=== PATIENT | male | born 1960 | race African-American/Black ===

== ENCOUNTER 2017-11-04 11:26 | Inpatient (IN) | payer OTHER ==
[~2017-11-04] VITALS: Ht 180.3 cm; Wt 170.7 kg
[~2017-11-04 11:26] MED LIST: ASPI-1152 PO; CARI350T PO; ENOX100D SQ; FINA5TAB3 PO; LISI-603 PO; LORA2TAB95 PO; METO50TA16 PO; MORP30CP13 PO; OXYC10TA49 PO; PANT40TA2 PO; RXENO XX; SIMV10TA6 PO; TAMS-12 PO; WARF7.5T49 PO; ZOLP10TA2 PO
--- NOTE | 2017-11-04 11:30 | NUR ---
PATIENT TO ED DT CHEST PAIN, ACHING, 8/10, RADIATING TO LEFT SHOULDER, BACK AND LEFT JAW STARTED 30MINS SQL MANAGER. PATIENT IS AWAKE AND ALERT. IN NO DISTRESS. SKIN IS WARM TO TOUCH AND NON DIAPHORETIC. PATIENT IS AFEBRILE. NO SOB. VSS.
--- NOTE | 2017-11-04 11:31 | NUR ---
EKG IN PROGRESS
--- NOTE | 2017-11-04 11:35 | NUR ---
MD FIELDS AT BEDSIDE
[2017-11-04] MEDS ORDERED: ASPIRIN 325 MG TABLET ONE (11:42)
[2017-11-04 11:53] LABS: BASOPHILS # (AUTO) 0.3 /CMM (0.0-0.2); BASOPHILS % (AUTO) 2.6 % (0.0-2.0); EOSINOPHILS % (AUTO) 2.1 % (0.0-6.0); HEMATOCRIT 33 % (39-51); HEMOGLOBIN 11.2 g/dL (13.5-17.5); LYMPHOCYTES # (AUTO) 1.6 /CMM (0.8-4.8); LYMPHOCYTES % (AUTO) 12.9 % (20.0-44.0); MEAN CORPUSCULAR HGB CONC 34 g/dl (31.0-36.0); MEAN CORPUSCULAR VOLUME 84 fL (80-96); MONOCYTES # (AUTO) 0.6 /CMM (0.1-1.30); MONOCYTES % (AUTO) 4.9 % (2.0-12.0); NEUTROPHILS # (AUTO) 9.6 /CMM (1.8-8.9); NEUTROPHILS % (AUTO) 77.5 % (43.0-81.0); PLATELET COUNT (AUTO) 285 /CMM (150-450); RDW COEFFICIENT OF VARIATION 19.2 (11.5-15.0); RED BLOOD CELL COUNT(AUTO) 3.98 MIL/uL (4.5-6.0); WHITE BLOOD COUNT (AUTO) 12.4 K/uL (4.3-11.0)
[2017-11-04] MEDS ORDERED: METO-356 PO (12:00)
[2017-11-04] MEDS ORDERED: SIMV40TA5 PO (12:00)
[2017-11-04] MEDS ORDERED: WARF10TA45 PO (12:00)
[2017-11-04] MEDS ORDERED: HYDR-548 PO (12:00)
[2017-11-04] MEDS ORDERED: ASPIRIN 325 MG TABLET PO ONE (12:00)
[2017-11-04 12:01] LABS: CALCIUM, SERUM 8.8 mg/dL (8.5-10.1); CARBON DIOXIDE 22 mmol/L (21-32); CHLORIDE 102 mmol/L (98-107); CREATININE 1.2 mg/dL (0.6-1.3); GLUCOSE 105 mg/dL (74-106); POTASSIUM 4.4 mmol/L (3.5-5.1); SODIUM SERUM 135 mmol/L (136-145); UREA NITROGEN, BLOOD 13 mg/dL (7-18)
--- NOTE | 2017-11-04 12:02 | NUR ---
FAN MAIL EDITOR AT BEDSIDE
[2017-11-04 12:11] LABS: TROPONIN I < 0.017 ng/mL (0.00-0.056)
[2017-11-04 12:28] LABS: INR 5.7 (0.85-1.15)
--- NOTE | 2017-11-04 12:44 | NUR ---
GAVE REPORT TO TELE ROOM 307 CLARA HO SLIPCOVER CUTTER ADMITTING. ADMITITNG DX CP TRANSFER VIA ACLS PROTOCOL
[2017-11-04] MEDS ORDERED: IV NS 0.9% 1,000 ML IV PRN (13:09)
[2017-11-04 13:15] VITALS: BP 133/67
--- NOTE | 2017-11-04 13:15 | NUR ---
PATIENT ARRIVED TO FLOOR AND PLACED IN ROOM 307-1
[2017-11-04] MEDS ORDERED: ZOLPIDEM TARTRATE 5 MG TABLET PO PRN (13:30)
[2017-11-04] MEDS ORDERED: ACETAMINOPHEN 325 MG TABLET PO PRN (13:30)
[2017-11-04] MEDS ORDERED: MAG HYDROX/AL HYDROX/SIMETH 30 ML UDC PO PRN (13:30)
[2017-11-04] MEDS ORDERED: MAGNESIUM HYDROXIDE 30 ML UDC PO PRN (13:30)
[2017-11-04] MEDS ORDERED: Z GUARD REMEDY 2 OZ OINT TP PRN (13:30)
[2017-11-04] MEDS ORDERED: METOCLOPRAMIDE HCL 15 MG in IV NS 0.9% 50 ML IV PRN (14:00)
--- NOTE | 2017-11-04 14:00 | NUR ---
RN ADMITTING NOTES PATIENT ARRIVED TO UNIT, PLACED IN ROOM 307-1. CHANGED TO A GOWN, SKIN ASSESSMENT COMPLETED, NO OPEN WOUNDS. BED IN LOW POSITION, LOCKED AND TWO SIDE RAILS ARE UP FOR SAFETY. CALL LIGHT WITHIN REACH FOR SAFETY. NO IV ACCESS, MD AWARE. WILL CONTINUE TO ASSESS AND MONITOR PATIENT.
[2017-11-04] MEDS ORDERED: METOCLOPRAMIDE HCL 10 MG/2 ML VIAL IV PRN (14:30)
[2017-11-04] MEDS ORDERED: LEVOFLOXACIN 750 MG /D5W 150ML 750 MG in PREMIX 1 EA IV SCH (15:00)
--- NOTE | 2017-11-04 15:10 | NUR ---
DR FRANKO EDDY WILL START A MIDLINE TOMORROW MORNING
--- NOTE | 2017-11-04 15:17 | NUR ---
ERROL ELIZABETH NOTIFIED OF NO IV ACCESS. ALL IV MEDS PLACED IN HOLD. PENDING MIDLINE. I REQUESTED IM PAIN MEDS, PENDING REPLY.
[2017-11-04 16:00] VITALS: BP 124/56
[2017-11-04] MEDS: MORPHINE SULFATE INJ 4 MG/ML DISP.SYRIN IM PRN ×2 (16:32→23:51)
[2017-11-04] MEDS: METOPROLOL TARTRATE 50 MG TABLET PO SCH ×2 (17:21→23:51)
[2017-11-04] MEDS: TAMSULOSIN 0.4 MG CAP.SR.24H PO SCH (17:21)
--- NOTE | 2017-11-04 17:23 | NUR ---
RADIOLOGIST AT BEDSIDE TO ASSESS PATIENT FOR CT SCAN. PER RADIOLOGIST, PATIENT IS UNABLE TO FIT. PLUS IODINE ALLERGY
--- NOTE | 2017-11-04 18:38 | NUR ---
RN CLOSING NOTES PATIENT IS IN BED. ALERT AND ORIENTED TO NAME, PLACE AND TIME. NO SIGNS AND SYMPTOMS OF DISTRESS. NO PAIN. RESPIRATION REGULAR AND UNLABORED. NO IV ACCESS, MIDLINE IN AM BY DR FRANCINE EDDY. PATIENT KEPT DRY, CLEAN AND SAFE. ALL NURSING CARE ANTICIPATED AND ATTENDED FOR. BED IS IN LOW POSITION, LOCKED AND TWO SIDE RAILS ARE UP. CALL LIGHT WITHIN REACH FOR SAFETY. WILL ENDORSE TO RISK MGR NURSE TO [facility].
--- NOTE | 2017-11-04 18:52 | NUR ---
PER PATIENT, MORPHINE 4MG IM DIDN'T HELP MUCH AND HE IS STILL IN PAIN, CLARA NOTIFIED, PENDING REPLY.
[2017-11-04] MEDS ORDERED: HYDROMORPHONE 1 MG/1 ML DISP.SYRIN IM PRN (19:30)
--- NOTE | 2017-11-04 19:30 | NUR ---
CHERI RN OPENING NOTES: RECEIVED PT AND IS ON ROOM AIR AND TOLERATING WELL. PT HAS NO IV ACCESS AT THIS TIME PT IS HARDSTICK. PT IS TO GET MIDLINE TOMORROW AM. PT VERBALIZING THAT MORPHINE 4MG IM DID NOT WORK WHEN IT WAS GIVEN. CALL LIGHT WITHIN PT'S REACH. BED KEPT IN LOW, LOCKED POSITION, AND SIDE RAILS X 2UP. WILL CONTINUE TO MONITOR PT.
[2017-11-04 20:00] VITALS: BP 123/69
[2017-11-04] MEDS: HYDROMORPHONE INJ 2 MG/ML DISP.SYRIN IM PRN (20:48)
--- NOTE | 2017-11-04 20:53 | NUR ---
EXECUTIVE VICE PRESIDENT OF SALES NOTES: PT WAS COMPLAINING OF L SHOULDER AND L ARM PAIN 8/10. PT WAS ADMINISTERED DILAUDID 1MG IM ON R DELTOID. WILL CONTINUE TO MNITOR PT.
[2017-11-04] MEDS ORDERED: HYDROMORPHONE INJ 0.5 MG/0.5 ML SYRINGE IM PRN (21:00)
[2017-11-04] MEDS: SIMVASTATIN 40 MG TABLET PO SCH (21:07)
--- NOTE | 2017-11-04 23:26 | NUR ---
DIRECTOR OF CONSERVATION NOTES: HOSPICE RN UNSUCCESSFUL IN GETTING ENOUGH BLOOD PT IS HARD STICK. PT IS TO GET MIDLINE INSERTED TOMORROW BY DR. EDDY.
--- NOTE | 2017-11-04 23:39 | NUR ---
SODA COLUMN OPERATOR NOTES: DR. CHANDNI Wen NOTIFIED ABOUT THIRD TROPONIN NOT BEING ABLE TO BE DRAWN. MD AWARE AND SAID TO HAVE IT DRAWN IN AM WITH MORNING LABS.
[2017-11-04 23:47] VITALS: BP 121/54
[2017-11-05] VITALS (7 sets, daily range): BP systolic 110–123; BP diastolic 58–78
[2017-11-05] MEDS: HYDROMORPHONE INJ 2 MG/ML DISP.SYRIN IM PRN ×3 (03:48→20:02)
[2017-11-05] MEDS: METOPROLOL TARTRATE 50 MG TABLET PO SCH ×4 (05:19→23:59)
--- NOTE | 2017-11-05 05:41 | NUR ---
DATABASE TECHNICIAN NOTES: PT REMOVED TELE BOX FROM HIMSELF. HE SAID IT IS IRRITATING HIM AND HE HAS NOT BEEN ABLE TO SLEEP EVERYTIME IT HAS TO BE FIXED. EXPLAINED TO PT THE BENEFITS OF HAVING THE OVERHEAD CLEANER ON WE ARE ABLE TO SEE WHAT IS GOING ON WITH HIM. PT SAID HE WOULD LIKE IT TO BE APPLIED A LITTLE LATER AND THAT HE WANTS TO BE ABLE TO SLEEP.
--- NOTE | 2017-11-05 06:19 | NUR ---
LEAD GENERATOR CLOSING NOTES: ALL NEEDS WERE ATTENDED AND ANTICIPATED FOR. PT ON ROOM AIR AND TOLERATING WELL. PT IS A/OX4. PT'S TELE BOX READING SHOWED SR WITH BBBS. HOWEVER, PT DOES NOT HAVE TELE BOX ON RIGHT NOW HE DOES NOT WANT IT ON SINCE IT IS IRRITATING HIM AND HAS NOT BEEN ABLE TO SLEEP. TELE BOX ON TABLE. PT STILL HAS NO IV NOTED AT THIS TIME. MIDLINE TO BE PLACED BY DR. EDDY THIS AM. CALL LIGHT WITHIN PT'S REACH. BED KEPT IN LOW, LOCKED POSITION, AND SIDE RAILS X 2UP. WILL ENDORSE TO AM NURSE FOR IMAN.
[2017-11-05 06:44] LABS: INR 4.8 (0.87-1.13)
[2017-11-05 07:16] LABS: ALANINE AMINOTRANSFERASE 45 U/L (12-78); ALBUMIN 3.6 g/dL (3.4-5.0); ALKALINE PHOSPHATASE 104 U/L (46-116); ASPARTATE AMINOTRANSFERASE 28 U/L (15-37); BILIRUBIN,TOTAL 0.5 mg/dL (0.2-1.0); CALCIUM, SERUM 8.9 mg/dL (8.5-10.1); CARBON DIOXIDE 24 mmol/L (21-32); CHLORIDE 105 mmol/L (98-107); CREATININE 1.1 mg/dL (0.6-1.3); GLUCOSE 106 mg/dL (74-106); POTASSIUM 5.1 mmol/L (3.5-5.1); SODIUM SERUM 140 mmol/L (136-145); TOTAL PROTEIN, SERUM 7.1 g/dL (6.4-8.2); UREA NITROGEN, BLOOD 13 mg/dL (7-18)
[2017-11-05 07:24] LABS: TROPONIN I < 0.017 ng/mL (0.00-0.056)
--- NOTE | 2017-11-05 07:35 | NUR ---
RN OPEN NOTES RECEIVED REPORT FROM ICU MANAGER NURSE. PATIENT IS BED, AWAKE ALERT AND ORIENTED. NO SIGNS AND SYMPTOMS OF DISTRESS. BED IN LOW POSITION, LOCKED AND TWO SIDE RAILS ARE UP. CALL LIGHT WITHIN REACH FOR SAFETY. WILL CONTINUE TO ASSESS AND MONITOR PATIENT.
[2017-11-05] MEDS: ASPIRIN 325 MG TABLET PO SCH (08:31)
[2017-11-05] MEDS: PANTOPRAZOLE 40 MG TABLET.DR PO SCH (08:31)
[2017-11-05] MEDS: FINASTERIDE (5 MG) 5 MG TABLET PO SCH (08:31)
[2017-11-05] MEDS: LISINOPRIL (20MG) 20 MG TABLET PO SCH (08:32)
[2017-11-05 08:36] LABS: CHOLESTEROL 104 mg/dL (<200); HDL CHOLESTEROL 31 mg/dL (40-60); LDL 57 mg/dL (0-99); THYROID STIMULATING HORMONE 5.019 uIU/mL (0.358-3.74); TRIGLYCERIDES 135 mg/dL (30-150)
[2017-11-05] MEDS: HYDROCODONE/APAP 10/325MG 1 EA TABLET PO PRN ×2 (08:39→16:39)
[2017-11-05] MEDS ORDERED: METOPROLOL SUCCINATE 25 MG TAB.SR.24H PO SCH (09:00)
--- NOTE | 2017-11-05 11:00 | NUR ---
PER CLARA NORTON, NO NEED FOR MIDLINE. ANTIBIOTIC WILL BE CHANGE TO PO
[2017-11-05] MEDS: LORAZEPAM 1 MG TABLET PO PRN ×2 (11:10→21:03)
[2017-11-05] MEDS: LEVOFLOXACIN (750 MG) 750 MG TABLET PO SCH (11:40)
[2017-11-05 13:00] LABS: BASOPHILS # (AUTO) 0.1 /CMM (0.0-0.2); BASOPHILS % (AUTO) 0.8 % (0.0-2.0); EOSINOPHILS % (AUTO) 2.8 % (0.0-6.0); HEMATOCRIT 32 % (39-51); HEMOGLOBIN 10.2 g/dL (13.5-17.5); LYMPHOCYTES # (AUTO) 1.2 /CMM (0.8-4.8); LYMPHOCYTES % (AUTO) 12.9 % (20.0-44.0); MEAN CORPUSCULAR HGB CONC 32 g/dl (31.0-36.0); MEAN CORPUSCULAR VOLUME 85 fL (80-96); MONOCYTES # (AUTO) 0.6 /CMM (0.1-1.30); MONOCYTES % (AUTO) 6.7 % (2.0-12.0); NEUTROPHILS # (AUTO) 7.2 /CMM (1.8-8.9); NEUTROPHILS % (AUTO) 76.8 % (43.0-81.0); PLATELET COUNT (AUTO) 268 /CMM (150-450); RDW COEFFICIENT OF VARIATION 19.9 (11.5-15.0); RED BLOOD CELL COUNT(AUTO) 3.72 MIL/uL (4.5-6.0); WHITE BLOOD COUNT (AUTO) 9.3 K/uL (4.3-11.0)
--- NOTE | 2017-11-05 13:01 | NUR ---
Recieved a call from kitchen regarding PT keeps asking extra foods. Diet changed from cardiac to regualr diet on 11/05/17, per MD order. Informed pt that we need to have double portion order, per MD if pt continues to ask for extra food. Discussed with RN. RN to follow up with diet order with MD. Per BMI, pt class III obese. RD initial assessment will complete on 11/06/17.
[2017-11-05] MEDS: TAMSULOSIN 0.4 MG CAP.SR.24H PO SCH (17:03)
--- NOTE | 2017-11-05 18:55 | NUR ---
RN CLOSING NOTES PATIENT IS IN BED. ALERT AND ORIENTED TO NAME, PLACE AND TIME. NO SIGNS AND SYMPTOMS OF DISTRESS. RESPIRATION REGULAR AND UNLABORED. NO IV ACCESS, UNDERWRITING MANAGER AWARE. PATIENT KEPT DRY, CLEAN AND SAFE. ALL NURSING CARE ANTICIPATED AND ATTENDED FOR. BED IS IN LOW POSITION, LOCKED AND TWO SIDE RAILS ARE UP. CALL LIGHT WITHIN REACH FOR SAFETY. WILL ENDORSE TO FAMILY COACH NURSE TO [facility].
--- NOTE | 2017-11-05 19:30 | NUR ---
MS RN OPENING NOTES: RECEIVED PT IN BED AND IS AWAKE. PT IS A/OX4. PT IS SITTING UP IN BED AWAITING FOR HIS DINNER TO BE REHEATED. NO IV ACCESS NOTED AT THIS TIME. CALL LIGHT WITHIN PT'S REACH. BED KEPT IN LOW, LOCKED POSITION, AND SIDE RAILS X 2UP . WILL CONTINUE TO MONITOR PT.
[2017-11-05] MEDS: SIMVASTATIN 40 MG TABLET PO SCH (21:03)
--- NOTE | 2017-11-05 21:08 | NUR ---
MS RN NOTES: PT APPEARS TO BE ANXIOUS AND CANNOT KEEP STILL IN BED. PT WAS ADMINISTERED ATIVAN 1MG PO. WILL CONTINUE TO MONITOR PT.
--- NOTE | 2017-11-06 00:01 | NUR ---
MS RN NOTES: PT REQUESTING FOR A SLEEP AID MEDICATION. PT WAS ADMINISTERED AMBIEN 5MG PO. WILL CONTINUE TO MONITOR.
[2017-11-06 04:00] VITALS: BP 109/68
[2017-11-06] MEDS: HYDROMORPHONE INJ 2 MG/ML DISP.SYRIN IM PRN ×3 (04:02→20:51)
[2017-11-06 04:03] VITALS: BP 109/68
--- NOTE | 2017-11-06 04:05 | NUR ---
MS RN NOTES: PT KEEPS GETTING UP IN BED AND FEELS ANXIOUS. PT IS IRRITABLE AND REQUESTING FOR HIS ANXIETY MED. PT WAS ADMINISTERED ATIVAN 1MG PO. WILL CONTINUE TO MONITOR PT.
[2017-11-06] MEDS: LORAZEPAM 1 MG TABLET PO PRN (04:43)
[2017-11-06 05:54] VITALS: BP 114/64
[2017-11-06] MEDS: METOPROLOL TARTRATE 50 MG TABLET PO SCH ×4 (05:55→23:39)
--- NOTE | 2017-11-06 06:43 | NUR ---
MS RN CLOSING NOTES: ALL NEEDS WERE ATTENDED AND ANTICIPATED FOR. PT IS AWAKE AND SITTING UP IN BED AT THE MOMENT. PT IS A/OX4. NO IV NOTED AT THIS TIE. CALL LIGHT WITHIN PT'S REACH. BED KEPT IN LOW, LOCKED POSITION, AND SIDE RAILS X 2UP. INSTRUCTED PT TO USE CALL LIGHT FOR ASSISTANCE. WILL ENDORSE TO AM NURSE FOR IMAN.
--- NOTE | 2017-11-06 07:07 | NUR ---
MS RN OPENING NOTES RECEIVED PT FROM NIGHTSHIFT NURSE IN STABLE CONDITION. PT IS A/O X3. NO SOB OR SINS OF DISTRESS NOTED. BREATHING IS EVEN AND UNLABORED. HE DENIES ANY CHEST PAIN AT THIS TIME. PT HAS NO IV ACCESS. MD AWARE. BED IN LOW LOCKED POSITION, SIDE RAILS UP X2, CALL LIGHT WITHIN REACH. WILL CONTINUE TO MONITOR
[2017-11-06 08:00] VITALS: BP 103/67
[2017-11-06] MEDS: FINASTERIDE (5 MG) 5 MG TABLET PO SCH (08:39)
[2017-11-06] MEDS: PANTOPRAZOLE 40 MG TABLET.DR PO SCH (08:39)
[2017-11-06] MEDS: ASPIRIN 325 MG TABLET PO SCH (08:39)
[2017-11-06] MEDS: LISINOPRIL (20MG) 20 MG TABLET PO SCH (08:40)
[2017-11-06] MEDS: HYDROCODONE/APAP 5/325MG 1 EACH TABLET PO PRN (08:45)
[2017-11-06 10:31] LABS: INR 3.25 (0.87-1.13)
[2017-11-06] MEDS: LEVOFLOXACIN (750 MG) 750 MG TABLET PO SCH (12:01)
[2017-11-06 16:00] VITALS: BP 111/54
[2017-11-06] MEDS: TAMSULOSIN 0.4 MG CAP.SR.24H PO SCH (17:50)
--- NOTE | 2017-11-06 18:52 | NUR ---
MS RN CLOSING NOTES PT REMAINS STABLE. ALL NEEDS WERE MET AND ANTICIPATED FOR. ALL DUE MEDS GIVEN. PAIN PROPERLY MANAGED WITH MEDICATIONS. UNABLE TO OBTAIN UA SAMPLE. SAFETY MEASURES REMAIN IN PLACE. WILL ENDORSE TO NIGHTSHIFT NURSE FOR IMAN
[2017-11-06 19:18] LABS: BASOPHILS % (AUTO) 0.2 % (0.0-2.0); EOSINOPHILS % (AUTO) 1.5 % (0.0-6.0); HEMATOCRIT 32 % (39-51); HEMOGLOBIN 10.4 g/dL (13.5-17.5); LYMPHOCYTES % (AUTO) 8.9 % (20.0-44.0); MEAN CORPUSCULAR HGB CONC 32 g/dl (31.0-36.0); MEAN CORPUSCULAR VOLUME 86 fL (80-96); MONOCYTES # (AUTO) 0.5 /CMM (0.1-1.30); MONOCYTES % (AUTO) 4.5 % (2.0-12.0); NEUTROPHILS # (AUTO) 9.2 /CMM (1.8-8.9); NEUTROPHILS % (AUTO) 84.9 % (43.0-81.0); PLATELET COUNT (AUTO) 210 /CMM (150-450); RED BLOOD CELL COUNT(AUTO) 3.75 MIL/uL (4.5-6.0); WHITE BLOOD COUNT (AUTO) 10.8 K/uL (4.3-11.0)
[2017-11-06 19:23] LABS: CALCIUM, SERUM 8.5 mg/dL (8.5-10.1); CREATININE 3.4 mg/dL (0.6-1.3); POTASSIUM 4.7 mmol/L (3.5-5.1)
--- NOTE | 2017-11-06 19:39 | NUR ---
MS BROWN OPENING NOTES: RECEIVED PT AND IS IN BED RESTING. PT IS A/OX4. NO IV ACCESS NOTED AT THIS TIME. CALL LIGHT WITHIN PT'S REACH. BED KEPT IN LOW, LOCKED POSITION, AND SIDE RAILS X 2UP. NO S/S OF DISTRESS NOTED AT THIS TIME. WILL CONTINUE TO MONITOR PT. Addendum: 11/06/17 at 1956 by ETHEL BUSTILLO RN PT APPEARS TO BE LETHARGIC.
[2017-11-06 19:59] VITALS: BP 121/62
--- NOTE | 2017-11-06 20:26 | NUR ---
MS RN NOTES: PT JUST HAD SMALL VOMITING EPISODE. PT OFFERED ICE CHIPS BUT PT DOES NOT WANT ANYTHING. HE WANTS A MEDICATION FOR N/V.
--- NOTE | 2017-11-06 20:43 | NUR ---
MS RN NOTES: INFORMED DR. TARIQ ABOUT 1 VOMITING EPISODE. NO ORDERS FOR NOW. PER DR. TARIQ N., JUST MONITOR FOR NOW.
--- NOTE | 2017-11-06 20:57 | NUR ---
MS RN NOTES: EXPLAINED TO PT THAT ONE OF SIDE EFFECTS OF DILAUDID IS N/V. PT STILL WANTS MEDICATION FOR HIS PAIN. PT WAS ADMINISTERED DILAUDID. WILL CONTINUE TO MONITOR PT.
[2017-11-06] MEDS: SIMVASTATIN 40 MG TABLET PO SCH (21:00)
[2017-11-06] MEDS: MORPHINE SULFATE INJ 4 MG/ML DISP.SYRIN IM PRN (23:40)
--- NOTE | 2017-11-06 23:40 | NUR ---
MS RN NOTES: PT'S BP RECHECKED. BP IS 109/59 HR 84. PT COMPLAINING OF GENERALIZED PAIN ALL OVER .PT KEEPS SAYING HE TAKES A STRONGER DOSE OF PAIN MEDS AT HOME. PT KEEPS SAYING HE NEEDS A STRONGER DOSE. PT WAS ADMINISTERED MORPHINE IM SHOT. WILL CONTINUE TO MONITOR PT.
--- NOTE | 2017-11-07 00:15 | NUR ---
MS RN NOTES: DR. CHANDNI Phillips. ON FLOOR. INFORMED HIM THAT PT MENTIONED HE HAD 1 BLOODY BOWEL MOVEMENT. PER DR. CHANDNI Phillips, COLLECT FOR OCCULT BLOOD. ALSO INFORMED HIM THAT PT IS SAYING ORDERED DILAUDID AND MORPHINE NOT STRONG ENOUGH FOR HIM. NO NEW ORDERS FOR NOW.
[2017-11-07 02:08] VITALS: BP 104/50
[2017-11-07] MEDS: HYDROCODONE/APAP 10/325MG 1 EA TABLET PO PRN (02:09)
--- NOTE | 2017-11-07 02:09 | NUR ---
MS RN NOTES: PT KEEPS COMPLAINING THAT HIS PAIN IS NOT GOING AWAY. PT IS GRUNTING AND SAYING HE NEEDS PAIN MANAGEMENT TO RELIEVE HIM FOR THE PAIN HE IS GETTING ON HIS LEFT SIDE OF HIS BODY. PT ADMINISTERED NORCO 10. WILL CONTINUE TO MONITOR PT.
[2017-11-07] MEDS: METOPROLOL TARTRATE 50 MG TABLET PO SCH ×3 (05:30→17:25)
--- NOTE | 2017-11-07 06:16 | NUR ---
MS RN CLOSING NOTES: ALL NEEDS WERE ATTENDED AND ANTICIPATED FOR. PT CURRENTLY SITTING UP IN BED. PT IS A/OX4. NO IV ACCESS NOTED; MD IS AWARE. PT HAS CALL LIGHT WITHIN PT'S REACH. BED KEPT IN LOW, LOCKED POSITION, AND SIDE RAILS X 2UP. DRAWER FITTER UNABLE TO DRAW BLOOD. WILL HAVE SOMEONE FROM THEIR DEPARTMENT COME BACK AT ANOTHER TIME AND ATTEMPT AGAIN PT IS HARD STICK. WILL ENDORSE TO AM NURSE FOR IMAN.
--- NOTE | 2017-11-07 07:10 | NUR ---
MS RN INITIAL NOTES: Received patient in bed, awake, head of bed elevated, on room air tolerated well. Alert and oriented x 4, verbally responsive and able to make needs known. No IV access as endorsed by checker and packer RN, made aware. No complaint of pain at this time. Call light with in patient reach, will continue to monitor accordingly.
[2017-11-07 07:51] LABS: BASOPHILS % (AUTO) 0.3 % (0.0-2.0); EOSINOPHILS % (AUTO) 2.1 % (0.0-6.0); HEMATOCRIT 31 % (39-51); HEMOGLOBIN 10.1 g/dL (13.5-17.5); LYMPHOCYTES % (AUTO) 7.8 % (20.0-44.0); MEAN CORPUSCULAR HGB CONC 33 g/dl (31.0-36.0); MEAN CORPUSCULAR VOLUME 86 fL (80-96); MONOCYTES # (AUTO) 0.7 /CMM (0.1-1.30); MONOCYTES % (AUTO) 5.6 % (2.0-12.0); NEUTROPHILS % (AUTO) 84.2 % (43.0-81.0); PLATELET COUNT (AUTO) 213 /CMM (150-450); RDW COEFFICIENT OF VARIATION 20.5 (11.5-15.0)
[2017-11-07 07:52] LABS: CALCIUM, SERUM 8.4 mg/dL (8.5-10.1); CREATININE 4.5 mg/dL (0.6-1.3); POTASSIUM 5.5 mmol/L (3.5-5.1)
[2017-11-07 07:58] LABS: INR 2.38 (0.87-1.13)
[2017-11-07 08:00] VITALS: BP 124/64
[2017-11-07] MEDS: PANTOPRAZOLE 40 MG TABLET.DR PO SCH (08:16)
[2017-11-07] MEDS: ASPIRIN 325 MG TABLET PO SCH (08:16)
[2017-11-07] MEDS: LISINOPRIL (20MG) 20 MG TABLET PO SCH (08:16)
[2017-11-07] MEDS: FINASTERIDE (5 MG) 5 MG TABLET PO SCH (08:16)
[2017-11-07] MEDS: HYDROMORPHONE INJ 2 MG/ML DISP.SYRIN IM PRN ×2 (08:19→17:26)
[2017-11-07] MEDS: LORAZEPAM 1 MG TABLET PO PRN (09:25)
--- NOTE | 2017-11-07 11:00 | NUR ---
ms rn notes Dr. Dover came seen and examined the patient and ordered stat bladder scan and scanned 67ml of urine and informed MD, per MD to insert roland cath and explained to the patient regarding roland insertion and refused. Explained the risk and benefits x 3 and still refused, per patient he will try to drink and he will be able to urinate, MD made aware. Dr. Dover ordered nephrology consult, and D/C lisinopril. Mentioned about patient potassium 5.5 and ordered kayexelate 30g x 1 only. All orders carried out and noted.
[2017-11-07] MEDS: MORPHINE SULFATE INJ 4 MG/ML DISP.SYRIN IM PRN ×2 (11:23→20:09)
[2017-11-07] MEDS ORDERED: SODIUM POLYSTYRENE SULFONATE 15 G/60 ML BOTTLE PO ONE (12:00)
[2017-11-07 16:00] VITALS: BP 94/48
[2017-11-07] MEDS: TAMSULOSIN 0.4 MG CAP.SR.24H PO SCH (17:25)
--- NOTE | 2017-11-07 19:17 | NUR ---
ms rn closing notes All needs provided, attended, and anticipated, patient is in stable condition at this time. Endorsed to next shift rn to continue care. Call light with in patient reach.
--- NOTE | 2017-11-07 19:45 | NUR ---
MS RN INITIAL NOTE PT IS SITTING UP ON SIDE OF THE BED, A/O X4 ABLE TO MAKE NEEDS KNOWN. ABLE TO AMBULATE TO THE RESTROOM WITH STEADY GAIT. NO SIGNS OF SOB OR DISTRESS, BREATHING EVENLY AND UNLABORED ON RA. PT HAS NO IV, ENDORSED BY DAYSHIFT THAT MD IS AWAKE. BED IS IN LOW AND LOCKED POSITION, CALL LIGHT WITHIN REACH. WILL CONTINUE TO MONITOR PT
[2017-11-07 20:00] VITALS: BP_SYST 117; BP_DIAS 54; BP_DIAS 74
[2017-11-07] MEDS: SIMVASTATIN 40 MG TABLET PO SCH (21:05)
[2017-11-08] MEDS: HYDROMORPHONE INJ 2 MG/ML DISP.SYRIN IM PRN (01:02)
[2017-11-08] MEDS: METOPROLOL TARTRATE 50 MG TABLET PO SCH ×4 (06:00→17:15)
--- NOTE | 2017-11-08 06:44 | NUR ---
MS RN CLOSING NOTE PT IS IN BED SLEEPING, EASILY AROUSED. BREATHING EVENLY AND UNLABORED ON RA, NO SIGNS OF SOB OR DISTRESS. NO IV ACCESS, MD AWARE. NO COMPLAINTS OF PAIN AT THIS TIME. NO ACUTE CHANGES THROUGHOUT THE SHIFT. BED IS IN LOW AND LOCKED POSITION, CALL LIGHT WITHIN REACH. WILL ENDORSE TO DAYSHIFT.
[2017-11-08 07:28] LABS: INR 1.99 (0.87-1.13)
[2017-11-08 08:00] VITALS: BP 148/98
--- NOTE | 2017-11-08 08:00 | NUR ---
MS STEPHANIE AM NOTES . RECEIVED PATIENT IN THE MORNING AT 0710 IN THE BED ALERT AND ORIENTED X4. PATIENT HAS NO COMPLAIN OF PAIN AT THAT TIME. PT NEED IV LINE , AWAITING FOR THE MIDLINE NURSE. VS ARE STABLE AND PATIENT AMBULATES TO THE BATHROOM BY HIMSELF .CALL LIGHT WITH IN REACH
[2017-11-08] MEDS: IV NS 0.9% 1,000 ML IV SCH ×2 (08:36→13:36)
[2017-11-08 08:46] LABS: CALCIUM, SERUM 7.9 mg/dL (8.5-10.1); CREATININE 6.6 mg/dL (0.6-1.3); POTASSIUM 4.8 mmol/L (3.5-5.1)
[2017-11-08] MEDS: ASPIRIN 325 MG TABLET PO SCH (08:55)
[2017-11-08] MEDS: FINASTERIDE (5 MG) 5 MG TABLET PO SCH (08:59)
[2017-11-08] MEDS: PANTOPRAZOLE 40 MG TABLET.DR PO SCH (09:00)
--- NOTE | 2017-11-08 09:00 | NUR ---
ENCOURAGED PT TO DRINK LOTS OF FLUIDS AND TO VOID IN THE URINAL SO WE CAN ACCURATELY MEASURE HIS URINE AND WE NEED TO COLLECT HIS URINE WELL FOR UA SAMPLE.PT INSISTS THAT HE GOES TO THE TOILET ANYWAY-REINFORCED TEACHING THAT WE NEED TO ACCURATELY MEASURE HIS URINE SO HE HAS TO USE URINAL.ABLE TO VOID 130 ML DARK YELLOW URINE AND SENT URINE SAMPLE TO LAB.FILLED UP 2 PITCHERS OF WATER ON HIS SIDE TABLE.
--- NOTE | 2017-11-08 10:04 | NUR ---
ATTEMPTED TO PUT HEPLOCK 4X BUT FAILED AND 4X YESTERDAY.PT IS A HARDSTICK.NOTIFIED DR ELDRIDGE WITH ORDERS FOR MIDLINE PLACEMENT.
--- NOTE | 2017-11-08 11:00 | NUR ---
ENCOURAGED PT TO DRINK LOTS OF FLUIDS AND TO VOID IN THE URINAL TO ACCURATELY MONITOR HIS I&O.PT INSISTS THAT HE'S BEEN DRINKING LOTS OF FLUIDS AND HE'S ON HIS THIRD PITCHER OF ICE WATER.
[2017-11-08 11:32] LABS: APPEARANCE,URINE SL CLOUDY (CLEAR); BILIRUBIN,URINE 1+ (NEGATIVE); BLOOD, URINE NEGATIVE Ery/uL (NEGATIVE); COLOR,URINE YELLOW (YELLOW); KETONES,URINE NEGATIVE (NEGATIVE); LEUKOCYTE ESTERASE ,URINE NEGATIVE (NEGATIVE); NITRITE, URINE NEGATIVE (NEGATIVE); PH,URINE 5.5 (5.0-8.0); PROTEIN,URINE NEGATIVE (NEGATIVE); UGLUCOSE NEGATIVE (NEGATIVE); UROBILINOGEN,URINE 0.2 EU/dL (0.2)
[2017-11-08 11:42] LABS: RBC,URINE 0-2 /HPF (0-2)
[2017-11-08 11:43] LABS: BACTERIA,URINE Rare /HPF (None Seen); CALCIUM OXALATE CRYSTALS,UR Few /HPF (None Seen); WBC,URINE 0-2 /HPF (0-3)
--- NOTE | 2017-11-08 11:43 | NUR ---
PT IS ASKING FOR PAIN MEDS MORPHINE OR DILAUDID DUE TO GEN BODY PAIN.CHECKED PT BP 85/48 HR 87.PT TEACHING DONE REGARDING ADVERSE REACTIONS IN TAKING PAIN MEDS.EXPLAINED TO THE PT THAT HIS BP IS TOO LOW TO GET STRONG NARCOTIC PAIN MEDS.PT IS UPSET AND ANGRY FOR NOT GETTING NEITHER MORPHINE OR DILAUDID.WILL REINFORCE TEACHING REGARDING THE RISKS OF NARCOTICS.
[2017-11-08 11:44] LABS: TRIPLE PHOSPHATE CRYSTAL,UR Few /HPF (None Seen)
--- NOTE | 2017-11-08 13:04 | NUR ---
MIDLINE NURSE,ELBA AND DR EDDY ATTEMPTED TO INSERT THE MIDLINE BUT PT IS SO JITTERY AND JERKED HIS ARM SEVERAL TIMES MAKING IT IMPOSSIBLE FOR MIDLINE TO BE INSERTED.PT TEACHING DONE FREQUENTLY BEFORE AND DURING THE PROCEDURE BUT PT IS NON COMPLIANT.WILL INFORM DR ELDRIDGE
--- NOTE | 2017-11-08 13:30 | NUR ---
NOTIFIED DR ELDRIDGE AND MADE AWARE OF PT BEING DIFFICULT DURING MIDLINE INSERTION EVEN IN THE PRESENCE OF THE MIDLINE NURSE,MAKENNA AND FRANKO EDDY NP BUT DR ELDRIDGE INSISTS TO INSERT PICC LINE OR MIDLINE ON THE PT FOR IVF ORDERED BY DR WEEKS.NOTIFIED FRANKO EDDY NP WHO STATED TO CALL ELBAPICC LINE NURSE.CALLED ICU WHO STATED THAT STEPHANIE ARREOLA WHO IS DOING MIDLINE INSERTION AT THIS TIME.AWAITING FOR ELBA'S RESPONSE.
--- NOTE | 2017-11-08 14:00 | NUR ---
ENCOURAGED PT TO DRINK LOTS OF FLUIDS AND TO VOID IN THE URINAL TO ACCURATELY MONITOR HIS I&O.PT INSISTS THAT HE'S BEEN DRINKING LOTS OF FLUIDS AND HE'S ON HIS FOURTH PITCHER OF ICE WATER.
--- NOTE | 2017-11-08 14:47 | NUR ---
PT IS INSISTING TO HAVE PAIN MEDS AGAIN.BP 109/58 HR 89.PT INSISTS TO HAVE DILAUDID IM AND WAS SO ANGRY NOT TO GET DILAUDID.SPOKE TO THE PT WITH THE CHARGE NURSE.PAIN MGT TEACHING DONE AND EXPLAINED THE RISKS,BENEFITS AND CONSEQUENCES OF RECEIVING NARCOTICS WITH LOW BP.WILL GIVEN NORCO 5/325 MG PO INSTEAD AND WILL MONITOR V/S.
[2017-11-08] MEDS: HYDROCODONE/APAP 5/325MG 1 EACH TABLET PO PRN (14:58)
--- NOTE | 2017-11-08 15:27 | NUR ---
FRANKOSUPERVISOR MICROWAVE NOTED THAT PT REFUSED MIDLINE INSERTION INSPITE OF EXPLAINING THE RISKS AND BENEFITS DISCUSSED.
--- NOTE | 2017-11-08 15:34 | NUR ---
UNABLE TO ADMINISTER 2LITERS OF NS IVF ORDERED BY DR WEEKS BECAUSE PT REFUSED MIDLINE INSERTION INSPITE OF EXPLAINING ITS RISKS AND BENEFITS.
[2017-11-08 16:00] VITALS: BP 110/60
[2017-11-08] MEDS: TAMSULOSIN 0.4 MG CAP.SR.24H PO SCH (17:15)
--- NOTE | 2017-11-08 17:21 | NUR ---
PT RESTING IN BED EATING HIS DINNER DENYING ANY PAIN OR DISTRESS.ENCOURAGED FLUIDS AND REMINDED TO VOID IN THE URINAL.VOIDED 850 ML URINE DURING THE SHIFT AND CONSUMED 16 Addendum: 11/08/17 at 1724 by JALYN NEWSOME RN CONSUMED 2000 ML OF WATER DURING THE SHIFT.
--- NOTE | 2017-11-08 19:30 | NUR ---
RN NOTES RECEIVED PT. AWAKE ON BED, A/OX4, OBESE, NO IV ACCESS, PT REFUSED, FRANKO EDDY IS AWARE, DENIES PAIN, NO SOB, CALL LIGHT WITHIN REACH, SIDERAILSUPX2, CONTINUE TO MONITOR
[2017-11-08 20:00] VITALS: BP 94/53
[2017-11-08] MEDS: SIMVASTATIN 40 MG TABLET PO SCH (22:58)
[2017-11-09] MEDS: HYDROCODONE/APAP 5/325MG 1 EACH TABLET PO PRN ×2 (00:31→21:42)
--- NOTE | 2017-11-09 00:35 | NUR ---
RN NOTES PT. REFUSED HIS LOPRESSOR 560MG PO AND WANTS PAIN MEDICATION INSTEAD, NORCO 5/325 MG PO GIVEN ORDERED, V/S STABLE
[2017-11-09] MEDS: METOPROLOL TARTRATE 50 MG TABLET PO SCH ×5 (06:00→23:50)
--- NOTE | 2017-11-09 06:35 | NUR ---
RN NOTES SLEEPING BUT AROUSABLE, DENIES PAIN, NO SOB, MORNING CARE RENDERED, PT. NEEDS ATTENDED
[2017-11-09 08:00] VITALS: BP_SYST 105; BP_SYST 85; BP_DIAS 59; BP_DIAS 63
--- NOTE | 2017-11-09 08:00 | NUR ---
MS RN NOTES RECEIVED PT. AWAKE ON BED, A/OX4,AM CARE COMPLETED . PT HAS NO IV ACCESS, PT REFUSED, FRANKO EDDY IS AWARE, DENIES PAIN, NO SOB, CALL LIGHT WITHIN REACH.
[2017-11-09] MEDS: ASPIRIN 325 MG TABLET PO SCH (09:45)
[2017-11-09] MEDS: FINASTERIDE (5 MG) 5 MG TABLET PO SCH (09:46)
[2017-11-09] MEDS: PANTOPRAZOLE 40 MG TABLET.DR PO SCH (09:46)
[2017-11-09 09:53] LABS: BASOPHILS % (AUTO) 0.2 % (0.0-2.0); EOSINOPHILS % (AUTO) 2.6 % (0.0-6.0); HEMATOCRIT 29 % (39-51); HEMOGLOBIN 9.4 g/dL (13.5-17.5); LYMPHOCYTES # (AUTO) 0.9 /CMM (0.8-4.8); LYMPHOCYTES % (AUTO) 11.2 % (20.0-44.0); MEAN CORPUSCULAR HGB CONC 32 g/dl (31.0-36.0); MEAN CORPUSCULAR VOLUME 85 fL (80-96); MONOCYTES % (AUTO) 13.6 % (2.0-12.0); NEUTROPHILS # (AUTO) 5.5 /CMM (1.8-8.9); NEUTROPHILS % (AUTO) 72.4 % (43.0-81.0); PLATELET COUNT (AUTO) 208 /CMM (150-450); RDW COEFFICIENT OF VARIATION 20.4 (11.5-15.0); RED BLOOD CELL COUNT(AUTO) 3.44 MIL/uL (4.5-6.0); WHITE BLOOD COUNT (AUTO) 7.6 K/uL (4.3-11.0)
[2017-11-09 10:02] LABS: INR 1.37 (0.87-1.13)
[2017-11-09 10:40] LABS: IRON, SERUM 77 ug/dl (50-175); TOTAL IRON BINDING CAPACITY 244 ug/dl (250-450)
[2017-11-09 13:55] LABS: ALANINE AMINOTRANSFERASE 19 U/L (12-78); ALBUMIN 2.6 g/dL (3.4-5.0); ALKALINE PHOSPHATASE 85 U/L (46-116); ASPARTATE AMINOTRANSFERASE 34 U/L (15-37); BILIRUBIN,TOTAL 1.9 mg/dL (0.2-1.0); CARBON DIOXIDE 18 mmol/L (21-32); CHLORIDE 98 mmol/L (98-107); GLUCOSE 135 mg/dL (74-106); POTASSIUM 4.9 mmol/L (3.5-5.1); SODIUM SERUM 125 mmol/L (136-145); TOTAL PROTEIN, SERUM 6.5 g/dL (6.4-8.2)
[2017-11-09 16:00] VITALS: BP 94/53
[2017-11-09] MEDS: TAMSULOSIN 0.4 MG CAP.SR.24H PO SCH (17:38)
[2017-11-09] MEDS: WARFARIN SODIUM 7.5 MG TABLET PO SCH (17:42)
--- NOTE | 2017-11-09 18:11 | NUR ---
MS RN AM CLOSING NOTES PT RESTING IN BED EATING HIS DINNER DENYING ANY PAIN OR DISTRESS.ENCOURAGED FLUIDS AND REMINDED TO VOID IN THE URINAL. PT CONSUMED 3200 ML OF WATER . OUTPUT IS 2800 ML
--- NOTE | 2017-11-09 19:15 | NUR ---
MS RN NOTES RECEIVED PT IN BED, WATCHING TV AT THIS TIME, A/0 X 4. VERBALLY RESPONSIVE. NO DISTRESS, NO SOB NOTED. RESPIRATION IS EVEN AND UNLABORED. NO IV ACCESS NOTED, PT REFUSED, RISK AND BENEFITS EXPLAINED , PT STILL REFUSED X3. NO C/O PAIN OR DISCOMFORT AT THIS TIME. ALL NEEDS ATTENDED AND MET. ABLE TO URINATE TO URINAL WITHOUT DIFFICULTY. SAFETY PRECAUTIONS OBERVED. CALL LIGHT WITHIN REACH. WILL CONT TO MONITOR.
[2017-11-09 20:00] VITALS: BP 117/58
[2017-11-09 20:34] VITALS: BP 105/64
[2017-11-09] MEDS: SIMVASTATIN 40 MG TABLET PO SCH (21:29)
[2017-11-10] MEDS: METOPROLOL TARTRATE 50 MG TABLET PO SCH ×3 (06:00→17:49)
--- NOTE | 2017-11-10 06:07 | NUR ---
PER UMESH FROM LAB , SHE'LL SEND SOMEONE ELSE TO DRAW THE PT'S BLOOD. SHE ATTEMPTED BUT UNABLE TO DRAW BLOOD FROM THE PT.
--- NOTE | 2017-11-10 06:49 | NUR ---
MS RN NOTES PT IN BED, ASLEEP AT THIS TIME,AROUSES EASILY. A/0 X 4. VERBALLY RESPONSIVE. NO DISTRESS, NO SOB NOTED. RESPIRATION IS EVEN AND UNLABORED. NO IV ACCESS, PT REFUSED , MD AWARE. NO C/O PAIN OR DISCOMFORT AT THIS TIME. ALL NEEDS ATTENDED AND MET. ABLE TO URINATE TO URINAL WITHOUT DIFFICULTY. SAFETY PRECAUTIONS OBSERVED. CALL LIGHT WITHIN REACH. WILL ENDORSE TO NEXT SHIFT FOR IMAN. .
[2017-11-10 08:00] VITALS: BP 110/65
--- NOTE | 2017-11-10 08:00 | NUR ---
MS BROWN AM NOTES . RECEIVED PATIENT IN THE MORNING AT 0715 IN THE BED ALERT AND ORIENTED X4. PATIENT HAS NO COMPLAIN OF PAIN AT THAT TIME. PT CONTINUE TO REFUSE IV LINE. VS ARE STABLE AND PATIENT AMBULATES TO THE BATHROOM BY HIMSELF .CALL LIGHT WITH IN REACH
[2017-11-10 08:33] LABS: CALCIUM, SERUM 8.9 mg/dL (8.5-10.1); CREATININE 1.3 mg/dL (0.6-1.3); POTASSIUM 4.9 mmol/L (3.5-5.1)
[2017-11-10] MEDS: FINASTERIDE (5 MG) 5 MG TABLET PO SCH (09:14)
[2017-11-10] MEDS: ASPIRIN 325 MG TABLET PO SCH (09:14)
[2017-11-10] MEDS: PANTOPRAZOLE 40 MG TABLET.DR PO SCH (09:15)
[2017-11-10 09:33] LABS: INR 1.13 (0.87-1.13)
[2017-11-10 09:55] LABS: ALBUMIN 3.3 g/dL (3.4-5.0); BILIRUBIN,DIRECT 0.3 mg/dL (0.0-0.2); BILIRUBIN,TOTAL 1.7 mg/dL (0.2-1.0); TOTAL PROTEIN, SERUM 7.2 g/dL (6.4-8.2)
[2017-11-10 13:21] LABS: MAGNESIUM 2.2 mg/dL (1.8-2.4); PHOSPHORUS 3.1 mg/dL (2.5-4.9)
[2017-11-10 14:09] LABS: CALCIUM, SERUM 8.9 mg/dL (8.5-10.1); CREATININE 1.2 mg/dL (0.6-1.3)
[2017-11-10 14:44] LABS: HEMOGLOBIN 9.5 g/dL (13.5-17.5); RED BLOOD CELL COUNT(AUTO) 3.43 MIL/uL (4.5-6.0); WHITE BLOOD COUNT (AUTO) 6.7 K/uL (4.3-11.0)
[2017-11-10 14:45] LABS: EOSINOPHILS % (AUTO) 2.7 % (0.0-6.0); HEMATOCRIT 29 % (39-51); LYMPHOCYTES # (AUTO) 0.8 /CMM (0.8-4.8); LYMPHOCYTES % (AUTO) 11.6 % (20.0-44.0); MEAN CORPUSCULAR HGB CONC 33 g/dl (31.0-36.0); MEAN CORPUSCULAR VOLUME 84 fL (80-96); MONOCYTES # (AUTO) 0.6 /CMM (0.1-1.30); MONOCYTES % (AUTO) 8.6 % (2.0-12.0); NEUTROPHILS # (AUTO) 5.1 /CMM (1.8-8.9); NEUTROPHILS % (AUTO) 77.1 % (43.0-81.0); PLATELET COUNT (AUTO) 244 /CMM (150-450); RDW COEFFICIENT OF VARIATION 19.6 (11.5-15.0)
[2017-11-10 16:00] VITALS: BP 131/72
[2017-11-10] MEDS: TAMSULOSIN 0.4 MG CAP.SR.24H PO SCH (17:36)
[2017-11-10] MEDS: WARFARIN SODIUM 7.5 MG TABLET PO SCH (17:36)
--- NOTE | 2017-11-10 18:15 | NUR ---
MS RN CLOSING NOTES PT RESTING IN BED EATING HIS DINNER DENYING ANY PAIN OR DISTRESS. PT HAS PENDING DISCHARGE, COORDINATED WITH PRODUCE DEPARTMENT MANAGER AND MOBILE UI DESIGNER. PT CLEAR AND HAS TO GO HOME. PT CANNOT TO LEAVE TODAY BECAUSE OF RIDE ISSUE. WILL BE PICKET UP BE RELATIVES TOMORROW EARLY IN THE MORNING. TEACHING DONE.
--- NOTE | 2017-11-10 19:35 | NUR ---
MS RN NOTE RECEIVED PATIENT FROM DAY SHIFT, PATIENT IS ALERT AND ORIENTEDX4, AMBULATORY, DENIES RESPIRATORY DISTRESS OR CHEST PAIN AT THIS TIME. NO IV SITE NOTED. PT HAS DC ORDER, BUT HIS NIECE WILL PICK HIM UP IN THE MORNING PER PATIENT. SRX2, BED IN LOW POSITION, CALL LIGHT WITHIN REACH, WILL CONTINUE TO MONITOR PATIENT.
[2017-11-10 20:00] VITALS: BP 97/51
[2017-11-10] MEDS: SIMVASTATIN 40 MG TABLET PO SCH (21:41)
[2017-11-11 05:40] VITALS: BP 94/62
[2017-11-11] MEDS: METOPROLOL TARTRATE 50 MG TABLET PO SCH ×2 (05:40)
--- NOTE | 2017-11-11 06:20 | NUR ---
MS RN NOTE PT GOT DC ORDER YESTERDAY, HAS BEEN WAITING FOR A RIDE FROM HIS NIECE SINCE LAST NIGHT. PATIENT WOKE UP AND STATED THAT HE IS READY TO GO HOME. ASKED IF HIS NIECE IS ON HER WAY TO GIVE HIM A RIDE, INSTEAD OF ANSWERING THE QUESTION, HE SAID I HAVE A WAY HOME, GIVE ME A PAPER TO SIGN. CALLED HIS NIECE KYMBERLY (THE ONE WHO WAS SUPPOSED TO PICK HIM UP) [phone], BUT NO ANSWER, VM WAS FULL. CHG RN NOTIFIED WELL. DC CARE COMPLETED, INSTRUCTION AND EDUCATION GIVEN. PT SIGNED THE PATIENT. MADE COPIES. ID BAND REMOVED. LOW PRESSURE BOILER OPERATOR TOOK HIM DOWN TO THE ENTRANCE.
[2017-11-11 15:12] LABS: PTH, INTACT 73 pg/mL (15-65)
[2017-11-13 09:16] LABS: *SPE ALBUMIN 3.2 g/dL (2.9-4.4); *SPE ALPHA-1-GLOBULIN 0.3 g/dL (0.0-0.4); *SPE ALPHA-2-GLOBULIN 0.6 g/dL (0.4-1.0); *SPE BETA GLOBULIN 1.1 g/dL (0.7-1.3); *SPE GLOBULIN, TOTAL 3.1 g/dL (2.2-3.9); *SPE M-SPIKE Not Observed g/dL (Not Observed); *SPEGAMMA GLOBULIN 1.1 g/dL (0.4-1.8)
[2017-11-13 11:11] LABS: *ANCANTIMYELOPEROXIDASE (MPO) <9.0 U/mL (0.0-9.0); *ANCANTIPROTEINASE 3 (PR-3) AB <3.5 U/mL (0.0-3.5)
[2017-11-14 03:11] LABS: COMPLEMENT C3, SERUM 158 mg/dL (82-167); COMPLEMENT C4, SERUM 38 mg/dL (14-44)
[2017-11-15 15:12] LABS: *ANCA ATYPICAL p-ANCA <1:20 titer (Neg:<1:20); *ANCA CYTOPLASMIC (C-ANCA) <1:20 titer (Neg:<1:20); *ANCA PERINUCLEAR (P-ANCA) <1:20 titer (Neg:<1:20)
== END 2017-11-11 06:20 | disposition home or self-care (01) | DRG 198 ==
LOC: ER 11:29 → TELE 12:54 → MED 11-05 10:37
PROVIDERS: ADMIT Hospitalist; ATTEND Hospitalist
PROC: B546ZZA Ultrasonography of Right Subclavian Vein, Guidance (ICD-10-PCS; principal; 2017-11-04)
PROC: 05H533Z Insertion of Infusion Device into Right Subclavian Vein, Percutaneous Approach (ICD-10-PCS; principal; 2017-11-04)
DX: I25.10 Atherosclerotic heart disease of native coronary artery without angina pectoris (principal); N17.0 Acute kidney failure with tubular necrosis; J18.9 Pneumonia, unspecified organism; D68.59 Other primary thrombophilia; I11.0 Hypertensive heart disease with heart failure; E46 Unspecified protein-calorie malnutrition; Z68.43 Body mass index [BMI] 50.0-59.9, adult; I50.32 Chronic diastolic (congestive) heart failure; E87.5 Hyperkalemia; E66.01 Morbid (severe) obesity due to excess calories; E78.5 Hyperlipidemia, unspecified; D63.8 Anemia in other chronic diseases classified elsewhere; Z86.711 Personal history of pulmonary embolism; Z88.8 Allergy status to other drugs, medicaments and biological substances; Z91.041 Radiographic dye allergy status; Z79.82 Long term (current) use of aspirin; Z79.01 Long term (current) use of anticoagulants; N40.0 Benign prostatic hyperplasia without lower urinary tract symptoms; F41.9 Anxiety disorder, unspecified; E66.1 Drug-induced obesity; F17.200 Nicotine dependence, unspecified, uncomplicated; Z86.718 Personal history of other venous thrombosis and embolism; Z82.49 Family history of ischemic heart disease and other diseases of the circulatory system; E03.9 Hypothyroidism, unspecified
CPT/HCPCS: 36415; 71045-TC; 76770-TC; 76856-TC; 80048-TC; 80053-TC; 80061-TC; 80076-TC; 81000-TC; 82570-TC; 83520; 83540-TC; 83735-TC; 83880; 83970; 84100-TC; 84155; 84165; 84300-TC; 84439-TC; 84443-TC; 84480; 84484-TC; 85025-TC; 85610-TC; 85730-TC; 86256; 87081-TC; 93307-TC; 93880-TC; A4216; A4606; C1751; J1170; J1956; J2270; J2765; Z7610

== ENCOUNTER 2018-08-11 15:34 | Inpatient (IN) | payer OTHER ==
[~2018-08-11] VITALS: Ht 180.3 cm; Wt 154.3 kg
[~2018-08-11 15:34] MED LIST changes: -ASPI-1152 PO; +ATOR40TA PO; -CARI350T PO; -ENOX100D SQ; -LISI-603 PO; +LISI-607 PO; +METO-356 PO; -METO50TA16 PO; -MORP30CP13 PO; -OXYC10TA49 PO; +OXYC15TA2 PO; -PANT40TA2 PO; -RXENO XX; -SIMV10TA6 PO; +WARF10TA45 PO; -WARF7.5T49 PO
--- NOTE | 2018-08-11 15:41 | NUR ---
BIB FRIEND FOR CP X 15 MINS, RADIATING TO LEFT ARM AND LEFT BACK. TO ER BED 4, HOOKED TO MONITOR, CAT SCAN TECH AT BEDSIDE, DR FIELDS AT BEDSIDE.
[2018-08-11] MEDS ORDERED: ASPIRIN 325 MG TABLET PO ONE (16:00)
[2018-08-11] MEDS ORDERED: MORPHINE SULFATE INJ 2 MG/ML DISP.SYRIN IV ONE (16:00)
--- NOTE | 2018-08-11 16:02 | NUR ---
CALLED FOR TELE BED
[2018-08-11 16:06] LABS: BASOPHILS # (AUTO) 0.2 /CMM (0.0-0.2); BASOPHILS % (AUTO) 1.5 % (0.0-2.0); EOSINOPHILS % (AUTO) 2.2 % (0.0-6.0); HEMATOCRIT 33 % (39-51); HEMOGLOBIN 10.3 g/dL (13.5-17.5); LYMPHOCYTES # (AUTO) 1.4 /CMM (0.8-4.8); LYMPHOCYTES % (AUTO) 10.6 % (20.0-44.0); MEAN CORPUSCULAR HGB CONC 31 g/dl (31.0-36.0); MEAN CORPUSCULAR VOLUME 75 fL (80-96); NEUTROPHILS # (AUTO) 9.9 /CMM (1.8-8.9); NEUTROPHILS % (AUTO) 77.7 % (43.0-81.0); PLATELET COUNT (AUTO) 221 /CMM (150-450); RED BLOOD CELL COUNT(AUTO) 4.37 MIL/uL (4.5-6.0); WHITE BLOOD COUNT (AUTO) 12.8 K/uL (4.3-11.0)
[2018-08-11] MEDS ORDERED: MORPHINE SULFATE INJ 4 MG/ML DISP.SYRIN ONE (16:09)
[2018-08-11] MEDS ORDERED: ASPIRIN 325 MG TABLET ONE (16:10)
[2018-08-11 16:15] LABS: CALCIUM, SERUM 9.2 mg/dL (8.5-10.1); CARBON DIOXIDE 24 mmol/L (21-32); CHLORIDE 103 mmol/L (98-107); GLUCOSE 109 mg/dL (74-106); POTASSIUM 3.9 mmol/L (3.5-5.1); SODIUM SERUM 139 mmol/L (136-145); UREA NITROGEN, BLOOD 7 mg/dL (7-18)
--- NOTE | 2018-08-11 16:16 | NUR ---
PT REFUSED MIDLINE INSERTION
[2018-08-11] MEDS ORDERED: SIMV40TA5 PO (16:21)
[2018-08-11] MEDS ORDERED: HYDR-4354 PO (16:21)
[2018-08-11] MEDS ORDERED: MORP30CP13 PO (16:21)
[2018-08-11 16:28] LABS: B-TYPE NATRIURETIC PEPTIDE 57 PG/ML (0-125)
[2018-08-11] MEDS ORDERED: ENOXAPARIN SODIUM 30 MG/0.3 ML DISP.SYRIN SQ ONE (17:00)
[2018-08-11] MEDS ORDERED: ENOXAPARIN SODIUM 40 MG/0.4 ML DISP.SYRIN SQ ONE (17:02)
[2018-08-11] MEDS ORDERED: ENOXAPARIN SODIUM 60 MG/0.6 ML DISP.SYRIN SQ ONE (17:02)
--- NOTE | 2018-08-11 17:11 | NUR ---
[facility] PAGED
[2018-08-11] MEDS ORDERED: ZOLPIDEM TARTRATE 10 MG TABLET PO PRN (18:00)
[2018-08-11] MEDS ORDERED: FUROSEMIDE 40 MG/4 ML VIAL IV SCH (18:00)
--- NOTE | 2018-08-11 18:40 | NUR ---
REPORT GIVEN TO PABLO BROWN OF TELE UNIT FOR IMAN
--- NOTE | 2018-08-11 19:22 | NUR ---
MS/RN REPORT GIVEN TO MARYBEL BROWN FOR ANY IMAN.
[2018-08-11 20:00] VITALS: BP 134/71
--- NOTE | 2018-08-11 20:00 | NUR ---
RUBBER MIXER NOTES RECEIVED PATIENT VIA GURNEY FROM ED IN STABLE CONDITION. NO DISTRESS NOTED. PERIPHERAL LINE INTACT AND PATENT. PATIENT A/OX4, IRRITABLE, AND NON COMPLIANT WITH NURSING CARE. PATIENT REFUSED SKIN ASSESSMENT DESPITE EXPLANATION OF RISKS AND BENEFITS X3. PATIENT ALSO NOTED WITH WALLET IN BELONGINGS AND REFUSED FOR STAFF TO GO THROUGH IT FOR INVENTORY PURPOSES. PATIENT STATED "YOU GUYS DONT NEED TO BE DOING ALL OF THAT. I DONT WANT NO ONE GOING THROUGH MY WALLET. MY WALLET STAYS WITH ME AT ALL TIMES." REFUSAL NOTED IN INVENTORY LIST. ENCOURAGED USE OF CALL LIGHT FOR ASSISTANCE AND VERBALIZED GOOD UNDERSTANDING. ROOM FREE OF CLUTTER AND BELONGINGS KEPT NEAR BEDSIDE. WILL CONTINUE TO MONITOR.
[2018-08-11] MEDS: FINASTERIDE (5 MG) 5 MG TABLET PO SCH (20:05)
[2018-08-11] MEDS: MORPHINE SULFATE SR 30 MG TABLET.SA PO SCH (20:05)
[2018-08-11] MEDS: TAMSULOSIN 0.4 MG CAP.SR.24H PO SCH (20:05)
[2018-08-11] MEDS: LISINOPRIL (20MG) 20 MG TABLET PO SCH (20:05)
[2018-08-11] MEDS: SIMVASTATIN 40 MG TABLET PO SCH (20:05)
[2018-08-11] MEDS: METOPROLOL SUCCINATE 25 MG TAB.SR.24H PO SCH (20:06)
[2018-08-11] MEDS: WARFARIN SODIUM 5 MG TABLET PO SCH (20:11)
[2018-08-11] MEDS: LORAZEPAM 1 MG TABLET PO PRN (23:41)
[2018-08-12] VITALS: BP 139/72
[2018-08-12 04:00] VITALS: BP 115/69
[2018-08-12] MEDS: ENOXAPARIN SODIUM 60 MG/0.6 ML DISP.SYRIN SQ SCH ×2 (05:32→17:36)
[2018-08-12] MEDS: HYDROCODONE/APAP 10/325MG 1 EA TABLET PO PRN ×2 (05:41→12:52)
--- NOTE | 2018-08-12 06:32 | NUR ---
CREDIT FRONT OFFICE DEVELOPER NOTES PATIENT AWAKE IN BED. NO DISTRESS NOTED. NO FURTHER C/O PAIN OR DISCOMFORT. PERIPHERAL LINE INTACT AND PATENT. ALL DUE MEDS GIVEN ORDERED WITH NO ASE NOTED. BED IN LOW LOCK SETTING. ALL BELONGINGS KEPT NEAR BEDSIDE. WILL CONTINUE TO MONITOR.
[2018-08-12 08:00] VITALS: BP 121/64
[2018-08-12] MEDS: FINASTERIDE (5 MG) 5 MG TABLET PO SCH (09:19)
[2018-08-12] MEDS: LISINOPRIL (20MG) 20 MG TABLET PO SCH (09:19)
[2018-08-12] MEDS: MORPHINE SULFATE SR 30 MG TABLET.SA PO SCH ×2 (09:20→20:32)
[2018-08-12] MEDS: FUROSEMIDE 40 MG TABLET PO SCH (09:20)
[2018-08-12] MEDS: METOPROLOL SUCCINATE 25 MG TAB.SR.24H PO SCH (09:21)
[2018-08-12] MEDS: LORAZEPAM 1 MG TABLET PO PRN (12:51)
--- NOTE | 2018-08-12 13:00 | NUR ---
PATIENT C/O FEELING OF ANXIETY AND PAIN , PT REQUESTED FOR ATIVAN PRN DOSE 2MG ORAL GIVEN PLUS NORCO 1 TAB PO FOR TO SHOULDER AND BACK , PT IS CALM WILL CONTINUE TO MONITOR
[2018-08-12 16:00] VITALS: BP 105/59
[2018-08-12] MEDS: SIMVASTATIN 40 MG TABLET PO SCH (17:31)
[2018-08-12] MEDS: TAMSULOSIN 0.4 MG CAP.SR.24H PO SCH (17:31)
[2018-08-12] MEDS: WARFARIN SODIUM 5 MG TABLET PO SCH (17:35)
--- NOTE | 2018-08-12 18:34 | NUR ---
PATIENT REMAIN COMFORTABLE ALL NEEDS ATTENDED ,NO S/S OF ACUTE DISTRESS AT THIS TIME , PT USING BED SIDE COMMODE WITH MINIMAL HELP , VITAL SIGNS STABLE WILL ENDORSE TO NIGHT NURSE
[2018-08-12 20:00] VITALS: BP_SYST 112; BP_SYST 120; BP_DIAS 66; BP_DIAS 83
--- NOTE | 2018-08-12 20:19 | NUR ---
MS RN NOTES RECEIVED PATIENT AWAKE IN BED WITH NO DISTRESS NOTED. CALL LIGHT WITHIN REACH. NO C/O CHEST PAIN OR DISCOMFORT. PERIPHERAL LINE INTACT AND PATENT. LAB CAME FOR THIRD ATTEMPT TO DRAW BLOOD FOR LABS ORDERED EARLIER THIS AM. PER PATIENT HE ONLY ALLOWED FOR PUNCTURE ON LEFT HAND WITH ONLY "ONE SHOT TO GET A VEIN." LAB UNABLE TO LOCATE GOOD VEIN ON LEFT HAND AND ENCOURAGED PATIENT TO ALLOW FOR OTHER SITES FOR BLOOD WITHDRAWAL. PATIENT BECAME UPSET AND IRRITATED AND REFUSED FURTHER BLOOD DRAW ATTEMPTS DESPITE EXPLANATION OF RISKS/BENEFITS X3. BED IN LOW LOCK SETTING. ALL BELONGINGS KEPT NEAR BEDSIDE. WILL CONTINUE TO MONITOR.
[2018-08-13] MEDS: LORAZEPAM 1 MG TABLET PO PRN ×2 (00:31→10:29)
[2018-08-13] MEDS: HYDROCODONE/APAP 10/325MG 1 EA TABLET PO PRN (04:30)
[2018-08-13] MEDS ORDERED: ENOXAPARIN SODIUM 60 MG/0.6 ML DISP.SYRIN SQ ONE (04:47)
[2018-08-13] MEDS: ENOXAPARIN SODIUM 60 MG/0.6 ML DISP.SYRIN SQ SCH (05:02)
--- NOTE | 2018-08-13 06:18 | NUR ---
MS RN NOTES PATIENT ASLEEP IN BED WITH NO DISTRESS NOTED. CALL LIGHT WITHIN REACH. ALL DUE MEDS GIVEN ORDERED WITH NO ASE NOTED. NO FURTHER C/O PAIN OR DISCOMFORT. PERIPHERAL LINE INTACT AND PATENT. BED IN LOW LOCK SETTING. WILL ENDORSE TO ONCOMING SHIFT.
--- NOTE | 2018-08-13 07:45 | NUR ---
MS RN OPENING NOTES RECEIVED PT LAYING IN BED WITH HOB ELEVATED. PT IS A/O X4, AFEBRILE. RESPIRATIONS ARE EVEN AND UNLABORED, NOT IN ANY ACUTE DISTRESS NOTED. DENIES ANY CHEST PAIN, SOB, N/V. IV SITE TO RFA INTACT, NO INFILTRATION NOTED. DRESSING KEPT CLEAN AND DRY. SAFETY MEASURES ARE IN PLACE. INSTRUCTED PT TO USE CALL LIGHT WHEN ASSISTANCE IS NEEDED, CALL LIGHT IS LEFT WITHIN REACH. PT STATED TO LEAVE HIM ALONE AND LET HIM SLEEP. WILL MONITOR THROUGHOUT SHIFT FOR CONTINUITY OF CARE.
[2018-08-13 08:00] VITALS: BP 107/54
[2018-08-13] MEDS: METOPROLOL SUCCINATE 25 MG TAB.SR.24H PO SCH (08:29)
[2018-08-13] MEDS: LISINOPRIL (20MG) 20 MG TABLET PO SCH (08:29)
[2018-08-13] MEDS: MORPHINE SULFATE SR 30 MG TABLET.SA PO SCH (08:29)
[2018-08-13] MEDS: FINASTERIDE (5 MG) 5 MG TABLET PO SCH (08:29)
[2018-08-13] MEDS: FUROSEMIDE 40 MG TABLET PO SCH (08:30)
[2018-08-13 08:33] VITALS: BP 107/54
[2018-08-13 09:00] LABS: BASOPHILS # (AUTO) 0.1 /CMM (0.0-0.2); EOSINOPHILS % (AUTO) 4.7 % (0.0-6.0); HEMATOCRIT 34 % (39-51); HEMOGLOBIN 10.8 g/dL (13.5-17.5); LYMPHOCYTES # (AUTO) 1.3 /CMM (0.8-4.8); LYMPHOCYTES % (AUTO) 17.9 % (20.0-44.0); MEAN CORPUSCULAR HGB CONC 32 g/dl (31.0-36.0); MEAN CORPUSCULAR VOLUME 76 fL (80-96); MONOCYTES # (AUTO) 0.6 /CMM (0.1-1.30); MONOCYTES % (AUTO) 8.1 % (2.0-12.0); NEUTROPHILS # (AUTO) 4.8 /CMM (1.8-8.9); NEUTROPHILS % (AUTO) 68.3 % (43.0-81.0); PLATELET COUNT (AUTO) 188 /CMM (150-450); RED BLOOD CELL COUNT(AUTO) 4.53 MIL/uL (4.5-6.0); WHITE BLOOD COUNT (AUTO) 7.1 K/uL (4.3-11.0)
--- NOTE | 2018-08-13 13:15 | NUR ---
MS ACCESS TECH NOTE PT DISCHARGE TO HOME IN MEDICALLY STABLE CONDITION. PT IS A/O X4, AFEBRILE. RESPIRATIONS ARE EVEN AND UNLABORED, NOT IN ANY ACUTE DISTRESS NOTED. PT DENIES ANY PAIN AT THIS TIME, NO C/O SOV, N/V. PT WAS VERY EAGER TO LEAVE WITH PRESCRIPTION FOR COUMADIN DROM DR. GLOVER. 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 NO SKIN ISSUES NOTED. ABDOMEN IS SOFT AND NONDISTENDED, BOWEL SOUNDS ARE PRESENT IN ALL 4 QUADRANTS UPON AUSCULTATION. DENIES ANY BLADDER DISCOMFORT. IV ACCESS REMOVED, APPLIED PRESSURE AND TOLERATED WELL. ID BAND REMOVED. EXPLAINED DISCHARGE PAPERWORK TO PT WITH VERBAL AND WRITTEN AGREEMENT. PT LEFT IN STABLE CONDITION VIA WHEELCHAIR ACCOMPANIED BY 1 STAFF ASSIST TO LOBBY.
== END 2018-08-13 13:15 | disposition home or self-care (01) | DRG 194 ==
LOC: ER 15:38 → TELE 17:09 → MED 08-12 08:46
PROVIDERS: ADMIT Internal Medicine; ATTEND Internal Medicine
DX: I11.0 Hypertensive heart disease with heart failure (principal); E43 Unspecified severe protein-calorie malnutrition; Z79.01 Long term (current) use of anticoagulants; I25.110 Atherosclerotic heart disease of native coronary artery with unstable angina pectoris; I50.33 Acute on chronic diastolic (congestive) heart failure; E66.01 Morbid (severe) obesity due to excess calories; Z68.42 Body mass index [BMI] 45.0-49.9, adult; F11.20 Opioid dependence, uncomplicated; N40.0 Benign prostatic hyperplasia without lower urinary tract symptoms; G89.4 Chronic pain syndrome; F17.210 Nicotine dependence, cigarettes, uncomplicated; E78.5 Hyperlipidemia, unspecified; E78.00 Pure hypercholesterolemia, unspecified; Z86.711 Personal history of pulmonary embolism; Z86.718 Personal history of other venous thrombosis and embolism; Z95.828 Presence of other vascular implants and grafts; Z79.82 Long term (current) use of aspirin; Z82.49 Family history of ischemic heart disease and other diseases of the circulatory system
CPT/HCPCS: 36415; 71045-TC; 80048-TC; 83880; 84484-TC; 85025-TC; 85610-TC; 85730-TC; 87081-TC; 93971-TC; G0378; J1650; J1940; J2270

== ENCOUNTER 2018-11-12 16:31 | Emergency (ER) ==
[~2018-11-12] VITALS: Ht 180.3 cm; Wt 158.8 kg
[~2018-11-12 16:31] MED LIST changes: -ATOR40TA PO; +HYDR-4354 PO; +MORP30CP13 PO; -OXYC15TA2 PO; +SIMV40TA5 PO
--- NOTE | 2018-11-12 17:00 | NUR ---
CAME IN FOR CHEST PAIN, SHARP LIKE PAIN, RADIATING TO LEFT SHOULDER AND BACK. 12/03 PS, TO ER BED 13,AOX4 , NOT IN DISTRESS, RESPIRATIONS EVEN AND UNLABORED, HOOKED TO MONITOR, CHANGED TO GOWN, PROVIDED WITH WARM BLANKET, AWAITING MD SHARMA.
--- NOTE | 2018-11-12 17:10 | NUR ---
DR ROGERS AT BEDSIDE
[2018-11-12 17:34] LABS: BASOPHILS % (AUTO) 0.3 % (0.0-2.0); HEMATOCRIT 34 % (39-51); HEMOGLOBIN 10.9 g/dL (13.5-17.5); LYMPHOCYTES # (AUTO) 0.4 /CMM (0.8-4.8); LYMPHOCYTES % (AUTO) 3.2 % (20.0-44.0); MEAN CORPUSCULAR HGB CONC 32 g/dl (31.0-36.0); MEAN CORPUSCULAR VOLUME 73 fL (80-96); MONOCYTES # (AUTO) 0.1 /CMM (0.1-1.30); MONOCYTES % (AUTO) 0.8 % (2.0-12.0); NEUTROPHILS # (AUTO) 11.9 /CMM (1.8-8.9); NEUTROPHILS % (AUTO) 95.7 % (43.0-81.0); PLATELET COUNT (AUTO) 225 /CMM (150-450); WHITE BLOOD COUNT (AUTO) 12.4 K/uL (4.3-11.0)
[2018-11-12 17:40] LABS: LYMPHOCYTES % (MANUAL) 9 % (16-48); MONOCYTES % (MANUAL) 2 % (0-11.0); NEUTROPHILS % (MANUAL) 89 (42-76)
[2018-11-12 17:44] LABS: CALCIUM, SERUM 8.8 mg/dL (8.5-10.1); CARBON DIOXIDE 22 mmol/L (21-32); CHLORIDE 105 mmol/L (98-107); CREATININE 1.2 mg/dL (0.6-1.3); GLUCOSE 139 mg/dL (74-106); POTASSIUM 4.9 mmol/L (3.5-5.1); SODIUM SERUM 141 mmol/L (136-145); UREA NITROGEN, BLOOD 11 mg/dL (7-18)
[2018-11-12 17:50] LABS: ALANINE AMINOTRANSFERASE 54 U/L (12-78); ALBUMIN 3.6 g/dL (3.4-5.0); ALKALINE PHOSPHATASE 111 U/L (46-116); ASPARTATE AMINOTRANSFERASE 34 U/L (15-37); BILIRUBIN,DIRECT 0.1 mg/dL (0.0-0.2); BILIRUBIN,TOTAL 0.4 mg/dL (0.2-1.0); TOTAL PROTEIN, SERUM 7.9 g/dL (6.4-8.2)
[2018-11-12] MEDS ORDERED: ACETAMINOPHEN ES 500 MG TABLET ONE (18:13)
--- NOTE | 2018-11-12 18:43 | NUR ---
Naresh wilson in [facility] - 11/12/18 at 1845 by RAJANI Patient discharged to home in stable condition. Written and verbal after care instructions given. Patient verbalizes understanding of instruction.
--- NOTE | 2018-11-12 18:45 | NUR ---
Patient discharged to [facility] in stable condition. Written and verbal after care instructions given. [facility] PERSONELL verbalizes understanding of instruction.
--- NOTE | 2018-11-12 18:45 | NUR ---
Naresh wilson in [facility] - 11/12/18 at 1846 by RAJANI Patient discharged to [facility] in stable condition. Written and verbal after care instructions given. [facility] PERSONRUMA verbalizes understanding of instruction.
[2018-11-12 18:46] VITALS: BP 137/65
--- NOTE | 2018-11-12 18:46 | NUR ---
Patient discharged to home in stable condition. Written and verbal after care instructions given. Patient verbalizes understanding of instruction.
== END 2018-11-12 18:47 | disposition home or self-care (01) ==
LOC: ER 16:34
DX: R07.89 Other chest pain (principal); R60.0 Localized edema; I45.10 Unspecified right bundle-branch block; R00.0 Tachycardia, unspecified; I10 Essential (primary) hypertension; E78.5 Hyperlipidemia, unspecified; F10.10 Alcohol abuse, uncomplicated; F17.200 Nicotine dependence, unspecified, uncomplicated; Y90.9 Presence of alcohol in blood, level not specified; Z86.711 Personal history of pulmonary embolism; Z88.6 Allergy status to analgesic agent; Z60.2 Problems related to living alone; Z91.012 Allergy to eggs; Z88.8 Allergy status to other drugs, medicaments and biological substances
CPT/HCPCS: 36415; 71045-TC; 80048-TC; 80076-TC; 84484-TC; 85025-TC; 85730-TC

== ENCOUNTER 2020-09-30 08:49 | Emergency (ER) | payer OTHER ==
[~2020-09-30] VITALS: Ht 180.3 cm; Wt 173.7 kg
[~2020-09-30 08:49] MED LIST changes: -LISI-607 PO; +LISI-768 PO; -METO-356 PO; +METO25TA4 PO; +SIMV-49 PO; -SIMV40TA5 PO
--- NOTE | 2020-09-30 08:55 | NUR ---
PT AMBULATORY TO ER BED 03 C/O DULL ACHY L SIDED CHEST PAIN NON RADIATING THAT STARTED 1 HOUR AGO. PT ALSO C/O HEMATURIA NOTED X 2 DAYS DENIES ANY RECENT TRAUMA BUT IS HAVING GROIN AREA PAIN. HX OF DVT W/ IVC FILTER. PT GOWNED AND PLACED ON MONITOR. STABLE VITALS. AWAITNG MD SHARMA.
--- NOTE | 2020-09-30 09:00 | NUR ---
DR REBOLLEDO AT BEDSIDE FOR EVAL.
--- NOTE | 2020-09-30 09:16 | NUR ---
GLAZIER METAL FURNITURE AT BEDSIDE FOR BLOOD DRAW.
[2020-09-30 09:28] LABS: BASOPHILS # (AUTO) 0.1 /CMM (0.0-0.2); EOSINOPHILS % (AUTO) 1.7 % (0.0-6.0); HEMATOCRIT 41 % (39-51); HEMOGLOBIN 13.3 g/dL (13.5-17.5); LYMPHOCYTES % (AUTO) 15.2 % (20.0-44.0); MEAN CORPUSCULAR HGB CONC 32 g/dl (31.0-36.0); MEAN CORPUSCULAR VOLUME 90 fL (80-96); MONOCYTES # (AUTO) 0.5 /CMM (0.1-1.30); NEUTROPHILS % (AUTO) 74.1 % (43.0-81.0); PLATELET COUNT (AUTO) 118 /CMM (150-450); RED BLOOD CELL COUNT(AUTO) 4.55 MIL/uL (4.5-6.0); WHITE BLOOD COUNT (AUTO) 6.7 K/uL (4.3-11.0)
[2020-09-30 10:15] LABS: BILIRUBIN,URINE SMALL (NEGATIVE); COLOR,URINE AMBER (YELLOW); LEUKOCYTE ESTERASE ,URINE MODERATE (NEGATIVE); NITRITE, URINE POSITIVE (NEGATIVE); PH,URINE 6.5 (5.0-8.0); PROTEIN,URINE >=300 mg/dl (NEGATIVE); UGLUCOSE NEGATIVE (NEGATIVE)
[2020-09-30] MEDS ORDERED: HYDROCODONE/APAP 10/325MG TABLET ONE (10:16)
[2020-09-30 10:26] LABS: BACTERIA,URINE Moderate /HPF (None Seen); RBC,URINE TOO NUMEROUS TO COUN /HPF (0-2); SQUAMOUS EPITHELIAL CELL,UR Rare /HPF (None Seen)
[2020-09-30] MEDS ORDERED: HYDROCODONE/APAP 10/325MG TABLET PO ONE (10:30)
[2020-09-30] MEDS ORDERED: CEPHALEXIN MONOHYDRATE 500 MG CAPSULE PO ONE ×2 (11:00→11:05)
[2020-09-30 11:05] LABS: CALCIUM, SERUM 7.3 mg/dL (8.5-10.1); CARBON DIOXIDE 25 mmol/L (21-32); CHLORIDE 105 mmol/L (98-107); GLUCOSE 116 mg/dL (74-106); POTASSIUM 3.8 mmol/L (3.5-5.1); SODIUM SERUM 140 mmol/L (136-145); UREA NITROGEN, BLOOD 9 mg/dL (7-18)
[2020-09-30 11:12] LABS: ALBUMIN 3.5 g/dL (3.4-5.0); ALKALINE PHOSPHATASE 99 U/L (46-116); ASPARTATE AMINOTRANSFERASE 29 U/L (15-37); BILIRUBIN,DIRECT 0.2 mg/dL (0.0-0.2); BILIRUBIN,TOTAL 0.8 mg/dL (0.2-1.0); TOTAL PROTEIN, SERUM 6.9 g/dL (6.4-8.2)
[2020-09-30] MEDS ORDERED: CEPH500C2 PO (11:50)
[2020-09-30] MEDS ORDERED: PHYTONADIONE 5 MG TABLET PO ONE (12:00)
[2020-09-30 12:02] VITALS: BP 144/80
--- NOTE | 2020-09-30 12:18 | NUR ---
PATIENT LEFT WITHOUT ACI AND PRESCRIPTION. SCRIP FAXED TO PATIENTS PREFFERED PHARMACY.
[2020-09-30 15:16] LABS: ALANINE AMINOTRANSFERASE 43 U/L (12-78)
== END 2020-09-30 12:19 | disposition home or self-care (01) ==
LOC: ER 08:49
DX: T45.511A Poisoning by anticoagulants, accidental (unintentional), initial encounter (principal); N39.0 Urinary tract infection, site not specified; I10 Essential (primary) hypertension; F17.200 Nicotine dependence, unspecified, uncomplicated; E66.01 Morbid (severe) obesity due to excess calories; Z68.43 Body mass index [BMI] 50.0-59.9, adult; Z91.012 Allergy to eggs; Z88.8 Allergy status to other drugs, medicaments and biological substances; Z79.899 Other long term (current) drug therapy; Y92.89 Other specified places as the place of occurrence of the external cause
CPT/HCPCS: 36415; 71045-TC; 80048-TC; 80076-TC; 81001; 84484-TC; 85025-TC; 85730-TC; 87086-TC